=== PATIENT | female | born 1975 | race African-American/Black ===

== ENCOUNTER → 2019-07-05 | Emergency (ER) | payer OTHER, SELFPAY | LOC: NAV ERS 06:06 | DX: M25.511 Pain in right shoulder (principal) | CPT/HCPCS: 99283 ==

== ENCOUNTER 2019-07-06 11:42 | Emergency (ER) | payer OTHER, SELFPAY | END 2019-07-06 12:20 | disposition home or self-care (01) | LOC: NAV ERS 11:42 | DX: M25.511 Pain in right shoulder (principal) | CPT/HCPCS: 99281 ==

== ENCOUNTER 2020-10-19 07:30 | Emergency (ER) | payer SELFPAY | END 2020-10-19 08:29 | disposition home or self-care (01) | LOC: NAV ERS 07:30 | DX: H81.13 Benign paroxysmal vertigo, bilateral (principal) | CPT/HCPCS: 36416; 93005 ==

== ENCOUNTER 2024-03-18 15:26 | Emergency (ER) | payer OTHER, SELFPAY ==
[2024-03-18] MEDS ORDERED: Morphine 4 MG/ML VIAL ONE (16:14)
[2024-03-18] MEDS ORDERED: Promethazine HCl 25 MG/ML VIAL ONE (16:15)
== END 2024-03-18 16:51 | disposition home or self-care (01) ==
LOC: NAV ERS 15:26
DX: S39.012A Strain of muscle, fascia and tendon of lower back, initial encounter (principal); W18.40XA Slipping, tripping and stumbling without falling, unspecified, initial encounter
CPT/HCPCS: 96372; 99282; J2272; J2550